=== PATIENT | male | born 1960 | race Caucasian/White ===

== ENCOUNTER 2021-04-05 08:35 | Day surgery (SDC) | payer OTHER ==
[~2021-04-05 08:35] MED LIST: CLIN300 PO; OXYACE10 PO; OXYACE5T PO; Omeprazole20 M1; RXCLIN PO; RXOXYACE PO
== END 2021-04-05 23:44 | disposition home or self-care (01) ==
LOC: ORD 08:35 → CT 08:35 → ORD 23:44
DX: R07.89 Other chest pain (principal); R06.09 Other forms of dyspnea; R00.2 Palpitations; E78.5 Hyperlipidemia, unspecified; I10 Essential (primary) hypertension; Z79.899 Other long term (current) drug therapy
CPT/HCPCS: 75574; Q9967

== ENCOUNTER → 2021-05-30 | Outpatient (CLI) | payer OTHER ==
[2021-06-01 14:04] LABS: CORONAVIRUS (COVID19) CSH-NRL Negative (Negative)
== END | disposition home or self-care (01) ==
LOC: LAB SHORT 13:34 → LAB 13:34
PROVIDERS: Physician Assistant Medical
DX: Z20.822 Contact with and (suspected) exposure to COVID-19 (principal)
CPT/HCPCS: U0003